=== PATIENT | female | born 1975 | race Asian ===

== ENCOUNTER 2016-02-23 08:38 | Emergency (ER) | payer OTHER ==
[~2016-02-23] VITALS: Ht 149.9 cm; Wt 91.2 kg
[2016-02-23 08:48] VITALS: BP 124/70; TEMP 98.2
== END 2016-02-23 09:48 | disposition home or self-care (01) ==
LOC: ED 08:38
DX: K59.00 Constipation, unspecified (principal)
CPT/HCPCS: 99281

== ENCOUNTER 2016-09-13 09:43 | Outpatient (CLI) | payer OTHER | END 2016-09-13 10:45 | disposition home or self-care (01) | LOC: US 09:43 | DX: R60.0 Localized edema (principal) ==

== ENCOUNTER 2016-11-15 17:45 | Emergency (ER) | payer OTHER ==
[~2016-11-15] VITALS: Ht 149.9 cm; Wt 89.8 kg
[2016-11-15 19:19] LABS: PLATELET COUNT 287 K/uL (152-353)
[2016-11-15 19:25] LABS: POTASSIUM 3.4 mmol/L (3.6-5.2); SODIUM 137 mmol/L (136-145)
[2016-11-16 00:31] VITALS: BP 122/61; TEMP 98.7
== END 2016-11-16 00:20 | disposition home or self-care (01) ==
LOC: ED 17:45
DX: N20.0 Calculus of kidney (principal)
CPT/HCPCS: 80053; 81000; 81025; 85027; 96374; 99284; J1885

== ENCOUNTER 2017-01-08 22:48 | Emergency (ER) | payer OTHER ==
[~2017-01-08] VITALS: Ht 149.9 cm; Wt 88.9 kg
[2017-01-08 23:41] LABS: PLATELET COUNT 246 K/uL (152-353)
[2017-01-09 00:18] VITALS: BP 11/75; TEMP 98.4
== END 2017-01-09 00:20 | disposition home or self-care (01) ==
LOC: ED 22:48
DX: J20.9 Acute bronchitis, unspecified (principal); H66.92 Otitis media, unspecified, left ear; H60.91 Unspecified otitis externa, right ear
CPT/HCPCS: 36415; 85027; 87804; 99283

== ENCOUNTER 2017-01-14 09:52 | Emergency (ER) | payer OTHER ==
[~2017-01-14] VITALS: Ht 149.9 cm; Wt 88.5 kg
[2017-01-14 13:16] VITALS: BP 151/80; TEMP 98
== END 2017-01-14 13:17 | disposition home or self-care (01) ==
LOC: ED 09:52
DX: H66.93 Otitis media, unspecified, bilateral (principal); J01.90 Acute sinusitis, unspecified
CPT/HCPCS: 96372; 99283; J0696; J1885

== ENCOUNTER 2017-03-29 16:22 | Emergency (ER) | payer BC ==
[~2017-03-29] VITALS: Ht 149.9 cm; Wt 86.6 kg
[2017-03-29 19:03] VITALS: BP 135/69; TEMP 97.6
== END 2017-03-29 19:05 | disposition home or self-care (01) ==
LOC: ED 16:22
DX: M25.712 Osteophyte, left shoulder (principal); M17.12 Unilateral primary osteoarthritis, left knee; M19.012 Primary osteoarthritis, left shoulder
CPT/HCPCS: 99283

== ENCOUNTER 2017-04-20 11:18 | Emergency (ER) | payer BC ==
[~2017-04-20] VITALS: Ht 149.9 cm; Wt 85.3 kg
[2017-04-20 13:09] LABS: PLATELET COUNT 237 K/uL (152-353)
[2017-04-20 13:20] LABS: POTASSIUM 3.8 mmol/L (3.6-5.2); SODIUM 134 mmol/L (136-145)
[2017-04-20 19:58] VITALS: BP 140/52; TEMP 98.1
== END 2017-04-20 19:58 | disposition home or self-care (01) ==
LOC: ED 11:18
PROVIDERS: Emergency Medicine
DX: R10.31 Right lower quadrant pain (principal); N73.9 Female pelvic inflammatory disease, unspecified; R53.1 Weakness
CPT/HCPCS: 80053; 81000; 84702; 85027; 99284

== ENCOUNTER 2017-11-13 07:26 | Emergency (ER) | payer BC ==
[~2017-11-13] VITALS: Ht 149.9 cm; Wt 85.7 kg
[2017-11-13 07:35] VITALS: BP 161/87; TEMP 97.5
[2017-11-13 07:59] LABS: PLATELET COUNT 241 K/uL (152-353)
[2017-11-13 08:14] LABS: POTASSIUM 4.1 mmol/L (3.6-5.2); SODIUM 139 mmol/L (136-145)
== END 2017-11-13 09:50 | disposition home or self-care (01) ==
LOC: ED 07:26
DX: K21.9 Gastro-esophageal reflux disease without esophagitis (principal); K29.70 Gastritis, unspecified, without bleeding; R00.1 Bradycardia, unspecified
CPT/HCPCS: 36415; 74022; 80053; 81000; 82150; 82550; 82553; 83690; 84484; 85027; 93005; 99283

== ENCOUNTER 2017-12-12 23:45 | Emergency (ER) | payer BC, OTHER ==
[~2017-12-12] VITALS: Ht 149.9 cm; Wt 87.1 kg
[2017-12-13 00:34] LABS: PLATELET COUNT 242 K/uL (152-353)
[2017-12-13 00:41] LABS: POTASSIUM 4.5 mmol/L (3.6-5.2); SODIUM 140 mmol/L (136-145)
[2017-12-13 01:08] LABS: PARTIAL THROMBOPLASTIN TIME 26.7 SECONDS (24.5-33.6)
[2017-12-13 01:40] VITALS: BP 122/62; TEMP 98.6
== END 2017-12-13 01:47 | disposition home or self-care (01) ==
LOC: ED 23:45
PROVIDERS: Family Medicine
DX: R07.89 Other chest pain (principal); K21.9 Gastro-esophageal reflux disease without esophagitis; R51 Headache; R00.1 Bradycardia, unspecified
CPT/HCPCS: 36415; 80053; 81000; 81025; 84484; 85027; 85379; 85610; 85730; 93005; 99283

== ENCOUNTER 2018-03-18 17:44 | Emergency (ER) | payer BC, OTHER ==
[~2018-03-18] VITALS: Ht 149.9 cm; Wt 87.1 kg
[2018-03-18 20:35] VITALS: BP 111/69; TEMP 97.9
== END 2018-03-18 20:35 | disposition home or self-care (01) ==
LOC: ED 17:44
DX: K52.89 Other specified noninfective gastroenteritis and colitis (principal); R51 Headache
CPT/HCPCS: 87651; 96372; 99283; J1885; J2550

== ENCOUNTER 2018-03-20 17:52 | Emergency (ER) | payer BC, OTHER ==
[~2018-03-20] VITALS: Ht 149.9 cm; Wt 87.1 kg
[2018-03-20 21:20] VITALS: BP 135/62; TEMP 98.1
== END 2018-03-20 21:22 | disposition home or self-care (01) ==
LOC: ED 17:52
DX: J06.9 Acute upper respiratory infection, unspecified (principal); R51 Headache; R05 Cough; R53.81 Other malaise
CPT/HCPCS: 99282

== ENCOUNTER 2018-03-22 01:25 | Emergency (ER) | payer BC ==
[~2018-03-22] VITALS: Ht 149.9 cm; Wt 87.1 kg
[2018-03-22 01:33] VITALS: BP 144/75; TEMP 98.3
== END 2018-03-22 01:52 | disposition home or self-care (01) ==
LOC: ED 01:25
DX: R10.31 Right lower quadrant pain (principal); R11.2 Nausea with vomiting, unspecified
CPT/HCPCS: 99282

== ENCOUNTER 2018-08-05 03:51 | Emergency (ER) | payer OTHER ==
[~2018-08-05] VITALS: Ht 149.9 cm; Wt 87.1 kg
[2018-08-05 04:55] VITALS: BP 130/66; TEMP 98.6
== END 2018-08-05 04:56 | disposition home or self-care (01) ==
LOC: ED 03:51
DX: H92.01 Otalgia, right ear (principal); K08.89 Other specified disorders of teeth and supporting structures
CPT/HCPCS: 96372; 99282; J1885

== ENCOUNTER 2018-11-22 01:51 | Emergency (ER) | payer OTHER ==
[~2018-11-22] VITALS: Ht 149.9 cm; Wt 89.8 kg
[2018-11-22 03:00] VITALS: BP 142/74; TEMP 97.2
== END 2018-11-22 03:09 | disposition home or self-care (01) ==
LOC: ED 01:51
DX: K04.7 Periapical abscess without sinus (principal)
CPT/HCPCS: 99282

== ENCOUNTER 2020-03-06 02:10 | Emergency (ER) | payer BC ==
[~2020-03-06] VITALS: Ht 149.9 cm; Wt 93.9 kg
[2020-03-06 03:30] LABS: PLATELET COUNT 282 K/uL (152-353)
[2020-03-06 03:36] LABS: POTASSIUM 3.9 mmol/L (3.6-5.2)
[2020-03-06 05:11] VITALS: BP 135/67; TEMP 98.7
== END 2020-03-06 05:12 | disposition home or self-care (01) ==
LOC: ED 02:21
PROVIDERS: Family Medicine
DX: K52.89 Other specified noninfective gastroenteritis and colitis (principal); N94.6 Dysmenorrhea, unspecified; Z03.818 Encounter for observation for suspected exposure to other biological agents ruled out
CPT/HCPCS: 36415; 80053; 81000; 81025; 82150; 83690; 85027; 87635; 96360; 96375; 99284; J1885; J2405; U0003

== ENCOUNTER 2020-08-30 17:09 | Outpatient (CLI) | payer BC | END 2020-08-30 21:33 | disposition home or self-care (01) | LOC: RAD 17:09 | PROVIDERS: ATTEND Nurse Practitioner | DX: M79.671 Pain in right foot (principal); M54.5 Low back pain ==

== ENCOUNTER 2020-10-07 07:52 | Emergency (ER) | payer BC ==
[~2020-10-07] VITALS: Ht 149.9 cm; Wt 95.3 kg
[2020-10-07 10:45] VITALS: BP 122/61; TEMP 98.7
== END 2020-10-07 10:45 | disposition home or self-care (01) ==
LOC: ED 07:52
DX: Z20.822 Contact with and (suspected) exposure to COVID-19 (principal)
CPT/HCPCS: 99281

== ENCOUNTER 2020-10-11 18:56 | Emergency (ER) | payer BC, OTHER ==
[~2020-10-11] VITALS: Ht 149.9 cm; Wt 95.3 kg
[2020-10-11 19:49] LABS: PLATELET COUNT 197 K/uL (152-353)
[2020-10-11 19:52] LABS: POTASSIUM 3.9 mmol/L (3.6-5.2)
[2020-10-11 20:40] VITALS: BP 124/83; TEMP 98.1
== END 2020-10-11 20:40 | disposition home or self-care (01) ==
LOC: ED 18:56
PROVIDERS: Emergency Medicine
DX: R53.81 Other malaise (principal); U07.1 COVID-19; E66.8 Other obesity
CPT/HCPCS: 80048; 84484; 85027; 93005; 99283

== ENCOUNTER 2021-02-05 05:44 | Emergency (ER) | payer BC ==
[~2021-02-05] VITALS: Ht 149.9 cm; Wt 96.2 kg
[2021-02-05 06:30] VITALS: BP 121/65; TEMP 98.7
== END 2021-02-05 06:30 | disposition home or self-care (01) ==
LOC: ED 05:44
DX: K08.89 Other specified disorders of teeth and supporting structures (principal); K02.9 Dental caries, unspecified
CPT/HCPCS: 96372; 99283; J0696; J1885

== ENCOUNTER 2021-04-14 11:20 | Emergency (ER) | payer BC ==
[~2021-04-14] VITALS: Ht 149.9 cm; Wt 95.3 kg
[2021-04-14 12:27] LABS: PLATELET COUNT 272 K/uL (152-353)
[2021-04-14 12:37] LABS: POTASSIUM 3.9 mmol/L (3.6-5.2)
[2021-04-14 15:15] VITALS: BP 121/73; TEMP 98.1
== END 2021-04-14 15:15 | disposition home or self-care (01) ==
LOC: ED 11:20
PROVIDERS: Hospitalist
DX: R10.30 Lower abdominal pain, unspecified (principal); N94.6 Dysmenorrhea, unspecified
CPT/HCPCS: 36415; 80053; 81000; 81025; 83690; 85027; 96365; 96375; 99284; J1885; J2405

== ENCOUNTER 2021-06-03 20:10 | Emergency (ER) | payer BC ==
[~2021-06-03] VITALS: Ht 149.9 cm; Wt 97.1 kg
[2021-06-03] MEDS ORDERED: KETO10TA34 PO (21:54)
[2021-06-03] MEDS ORDERED: MEDROL DOSEPAK4 MG PO (21:54)
[2021-06-03] MEDS ORDERED: 904272561 PO (21:54)
[2021-06-03 22:12] VITALS: BP 131/76; TEMP 98.5
== END 2021-06-03 22:13 | disposition home or self-care (01) ==
LOC: ED 20:10
DX: T63.301A Toxic effect of unspecified spider venom, accidental (unintentional), initial encounter (principal); L53.8 Other specified erythematous conditions; X58.XXXA Exposure to other specified factors, initial encounter; Y92.89 Other specified places as the place of occurrence of the external cause
CPT/HCPCS: 96372; 99283; J0696; J1100; J1885

== ENCOUNTER 2021-06-11 16:32 | Emergency (ER) | payer BC ==
[~2021-06-11] VITALS: Ht 149.9 cm; Wt 97.1 kg
[~2021-06-11 16:32] MED LIST: 904272561 PO; KETO10TA34 PO; MEDROL DOSEPAK4 MG PO
[2021-06-11 17:15] VITALS: BP 125/70; TEMP 99
== END 2021-06-11 17:16 | disposition home or self-care (01) ==
LOC: ED 16:32
DX: R22.32 Localized swelling, mass and lump, left upper limb (principal); T63.301D Toxic effect of unspecified spider venom, accidental (unintentional), subsequent encounter; X58.XXXD Exposure to other specified factors, subsequent encounter; Y92.89 Other specified places as the place of occurrence of the external cause
CPT/HCPCS: 99281

== ENCOUNTER 2022-02-01 14:03 | Emergency (ER) | payer BC ==
[~2022-02-01] VITALS: Ht 149.9 cm; Wt 97.1 kg
[2022-02-01 14:09] VITALS: BP 138/78; TEMP 97.6
[2022-02-01 14:43] LABS: PLATELET COUNT 282 K/uL (152-353)
== END 2022-02-01 16:27 | disposition home or self-care (01) ==
LOC: ED 14:03
PROVIDERS: Family Medicine
DX: J04.0 Acute laryngitis (principal); J01.80 Other acute sinusitis; Z20.822 Contact with and (suspected) exposure to COVID-19
CPT/HCPCS: 85027; 87502; 87635; 87651; 99283; U0003

== ENCOUNTER 2022-03-05 12:49 | Emergency (ER) | payer BC ==
[~2022-03-05] VITALS: Ht 149.9 cm; Wt 97.1 kg
[2022-03-05 12:54] VITALS: BP 119/66; TEMP 98.5
== END 2022-03-05 13:57 | disposition home or self-care (01) ==
LOC: ED 12:49
DX: J32.8 Other chronic sinusitis (principal); R51.9 Headache, unspecified
CPT/HCPCS: 96372; 99282; J1885

== ENCOUNTER 2022-04-03 21:40 | Emergency (ER) | payer BC ==
[~2022-04-03] VITALS: Ht 149.9 cm; Wt 97.1 kg
[2022-04-03 22:30] VITALS: BP 150/60; TEMP 98.1
== END 2022-04-03 22:30 | disposition home or self-care (01) ==
LOC: ED 21:40
DX: T28.0XXA Burn of mouth and pharynx, initial encounter (principal); X10.1XXA Contact with hot food, initial encounter; Y93.G3 Activity, cooking and baking; Y92.89 Other specified places as the place of occurrence of the external cause
CPT/HCPCS: 99282